=== PATIENT | female | born 2000 | race Caucasian/White ===

== ENCOUNTER 2022-12-17 21:39 | Emergency (ER) | payer OTHER, BC, SELFPAY ==
--- NOTE | ~2022-12-17 | CT_ITS ---
EXAMINATION: CT HEAD WITHOUT CONTRAST CLINICAL INFORMATION: Headache. COMPARISON: None available. TECHNIQUE: Contiguous axial imaging was performed from the skull base to vertex without intravenous administration of contrast. This CT examination was performed using dose optimization techniques as appropriate, variously including the following: *Automated exposure control *Adjustment of mA and/or kV according to patient size (this includes techniques or standardized protocols for targeted exams where dose is matched to indication/reason for exam; i.e. extremities or head) *Use of iterative reconstruction technique DLP: 556 mGy-cm FINDINGS: The lateral, third and fourth ventricles are normally outlined. The cortical sulci and basal cisterns are normally outlined as well. There is no acute territorial defect, hemorrhage or midline shift. The extra-axial spaces are unremarkable. Calvarium: Intact. Maxilla facial sinuses and mastoids: Clear as visualized. CT/CT head/brain wo IV con IMPRESSION: No acute intracranial pathology.
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
[2022-12-17 21:46] VITALS: BP 109/79; BP 127/84; PULSE 86; PULSE 88; RESP 15; TEMP 36.6; O2SAT 100; BMI 25.2
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
[2022-12-17] MEDS: Ibuprofen 600 MG TABLET PO (22:14)
[2022-12-17 23:41] VITALS: BP 117/89; PULSE 88; RESP 16; O2SAT 99
== END 2022-12-18 00:39 | disposition home or self-care (01) ==
PROVIDERS: Emergency Provider Emergency Medicine
DX: S80.02XA Contusion of left knee, initial encounter (principal); V43.62XA Car passenger injured in collision with other type car in traffic accident, initial encounter; Y93.89 Activity, other specified; Y92.411 Interstate highway as the place of occurrence of the external cause; Y99.9 Unspecified external cause status
CPT/HCPCS: 70450; 73560; 99284